=== PATIENT | female | born 1960 | race Caucasian/White ===

== ENCOUNTER 2018-02-15 22:43 | Inpatient (IN) | payer OTHER ==
[~2018-02-15] VITALS: Ht 149.9 cm; Wt 90.3 kg
[2018-02-15 22:50] VITALS: Ht 149.9 cm; Wt 90.3 kg
[2018-02-15 23:28] LABS: BASOPHIL % 1.3 % (0-2); PLATELET COUNT 286 x10^3mcL (130-400); RED CELL DISTRIBUTION WIDTH 13.3 % (11.5-14.5)
[2018-02-15 23:36] LABS: CALCIUM 8.5 mg/dL (8.5-10.1); CARBON DIOXIDE 27.4 mmol/L (21-32); CHLORIDE SERUM 106 mmol/L (98-107); CREATININE SERUM 0.8 mg/dL (0.6-1.0); GFR1 > 60 mL/min; GLUCOSE SERUM 116 mg/dL (74-106); POTASSIUM SERUM 3.5 mmol/L (3.5-5.1); SODIUM SERUM 142 mmol/L (136-145)
[2018-02-15 23:41] LABS: ALBUMIN 3.5 g/dL (3.4-5.0); ALKALINE PHOSPHATASE 104 U/L (46-116); ALT/SGPT 30 U/L (14-59); AST/SGOT 14 U/L (15-37); BILIRUBIN TOTAL 0.28 mg/dL (0.20-1.00); TOTAL PROTEIN, SERUM 7.4 g/dL (6.4-8.2)
[2018-02-16 02:13] LABS: CHOLESTEROL/HDL RATIO 2.8; PHOSPHOROUS 4.2 mg/dL (2.5-4.9)
[2018-02-16 02:33] VITALS: BP 126/68
[2018-02-16 05:11] VITALS: BP 113/75
[2018-02-16 06:15] LABS: CALCIUM 8.8 mg/dL (8.5-10.1); CARBON DIOXIDE 28.4 mmol/L (21-32); CHLORIDE SERUM 107 mmol/L (98-107); CREATININE SERUM 0.8 mg/dL (0.6-1.0); GFR1 > 60 mL/min; GLUCOSE SERUM 109 mg/dL (74-106); MAGNESIUM 2.1 mg/dL (1.8-2.4); PHOSPHOROUS 4.2 mg/dL (2.5-4.9); POTASSIUM SERUM 4.1 mmol/L (3.5-5.1); SODIUM SERUM 144 mmol/L (136-145)
[2018-02-16 06:39] LABS: BASOPHIL % 0.6 % (0-2); PLATELET COUNT 265 x10^3mcL (130-400); RED CELL DISTRIBUTION WIDTH 12.6 % (11.5-14.5)
[2018-02-16 08:47] VITALS: BP 127/76
[2018-02-16 11:14] LABS: microscopic required? YES; urine erythrocyte NEGATIVE (NEGATIVE)
[2018-02-16 12:38] VITALS: BP 133/85
[2018-02-16] MEDS ORDERED: LOSARTAN POTASS25 M1 PO (16:20)
[2018-02-16 16:48] VITALS: BP 133/85
== END 2018-02-16 18:27 | disposition home or self-care (01) | DRG 206 ==
LOC: ED 22:43 → DU 02-16 01:12
PROVIDERS: Emergency Medicine; Internal Medicine
DX: M94.0 Chondrocostal junction syndrome [Tietze] (principal); K21.9 Gastro-esophageal reflux disease without esophagitis; E11.65 Type 2 diabetes mellitus with hyperglycemia; Z98.891 History of uterine scar from previous surgery; Z90.710 Acquired absence of both cervix and uterus
CPT/HCPCS: 83880; Q0092